=== PATIENT | male | born 1965 | race Caucasian/White ===

== ENCOUNTER 2016-09-15 13:48 | Emergency (ER) | payer OTHER ==
[2016-09-15 13:53] VITALS: BP 150/99; TEMP 99.1; BMI 31.5
--- NOTE | 2016-09-15 14:01 | ED.PDOC ---
General ED Provider: Dr. ELISABET HESS JR Chief Complaint: Finger Laceration Stated Complaint: closed with superglue -cut his left thumb on metal. tenderpainful moving thumb. redness noted.[ End ]99.1 80 16 94% 150/99 12/21 patient states wound was open and bleeding and he squirted a lot of superglue into laceration initially not painful now tender painful slightly swollen. disc with poison control- local wound care is non toxic hardens immediately per [place] Time Seen by Physician: 14:00 Mode of Arrival: Walk-In Information Source: Patient Exam Limitations: No limitations Nursing and Triage Documentation Reviewed and Agree: No Review of Systems - Review Of Systems Constitutional: Reports: No symptoms Eyes: Reports: No symptoms Ears, Nose, Mouth, Throat: Reports: No symptoms Respiratory: Reports: No symptoms Cardiac: Reports: No symptoms GI: Reports: No symptoms : Reports: No symptoms Musculoskeletal: Reports: Other Skin: Reports: Lesions (LEFT THUMB WITH 3 CM TENDER LESION CONSISTENT WITH 3 DAY LACERATION NO OOZINGTENDER ALONG EDGES NO PALABLE FOREIGN BODY DRY MODERATELY TENDER) Neurological: Reports: No symptoms (NEUROVASCULAR INTACT) Endocrine: Reports: No symptoms Hematologic/Lymphatic: Reports: No symptoms All Other Systems: Other Past Medical History - Past Medical History Previously Healthy: Yes Endocrine: Reports: DM 2, Dyslipidemia Cardiovascular: Reports: CAD, [place] (MT X3 STINT X2 ), Hypertension Respiratory: Reports: COPD Hematological: Reports: None Gastrointestinal: Reports: GERD Genitourinary: Reports: None Neuro/Psych: Reports: None Musculoskeletal: Reports: Arthritis, Back Pain, Joint Pain Cancer: Reports: None Other Pertinent Past Medical History: PVD - Surgical History General Surgical History: Reports: Appendectomy, Stent (x2), Orthopedic ( spinalfusion), Back Surgery - Family History Family History: Reports: None - Social History Smoking Status: Current every day smoker, Heavy tobacco smoker Hx Substance Use: Yes ("smoke a little weed every now and then.") Alcohol Screening: None - Immunizations Tetanus Shot up to Date: Yes (2 year ago) Physical Exam - Physical Exam Appearance: Ill-appearing Pain Distress: Moderate Neck: Supple Respiratory: Airway patent Skin: Warm, Dry (NOTE LESION) Neurological: Sensation intact, Motor intact, Reflexes intact, Cranial nerves intact, Alert, Oriented Critical Care Note - Critical Care Note Total Time (mins): 0 Course - Course Orders, Labs, Meds: Orders Category Date Time Status Ketorolac Tromethamine [Toradol] MEDS 09/15/16 14:13 Discontinued 60 mg IM ONCE STA THUMB, LEFT Stat RADS 09/15/16 14:12 Completed Medications Discontinued Medications Generic Name Dose Route Start Last Admin Trade Name Freq PRN Reason Stop Dose Admin Ketorolac Tromethamine 60 mg 09/15/16 14:13 09/15/16 14:24 Toradol IM 09/15/16 14:14 60 mg ONCE STA Administration Vital Signs: Temp Pulse Resp BP Pulse Ox 09/15/16 13:50 99.1 F 80 16 150/99 H 94 L Departure - Departure Time of Disposition: 15:02 Disposition: HOME SELF-CARE Discharge Problem: Laceration of finger, Foreign object left in body during injection or vaccination Instructions: Cellulitis (ED), Soft Tissue Foreign Body (ED), Laceration Without Closure (ED) Condition: Good Pt referred to PMD for follow-up: Yes Additional Instructions: ANTIBIOTIC UNTIL GONE RECHECK PMD DISCUSS POSSIBLE REFERRAL FOR FOREIGN MATTER UNDER SKIN MAY USE TOPICAL OINTMENT ON LACERATION DAILY BANDAGE CYANOACRYLATE(SUPERGLUE) MAY CONE TO SURFACE DURING OR AFTER HEALING Prescriptions: Naproxen [Naprosyn] 500 mg PO Q12HR PRN #30 tablet PRN Reason: PAIN Cephalexin [Keflex] 500 mg PO QID #20 capsule Allergies/Adverse Reactions: Allergies cyclobenzaprine HCl [From Flexeril] Adverse Reaction (Verified 09/15/16 13:52) diphenhydramine HCl [From Benadryl] Adverse Reaction (Verified 09/15/16 13:52) morphine Adverse Reaction (Verified 09/15/16 13:52) promethazine HCl [From Phenergan] Adverse Reaction (Verified 09/15/16 13:52) Home Medications: Ambulatory Orders Ticagrelor [Brilinta] 90 mg PO BID 08/18/13 Carvedilol [Coreg] 3.125 mg PO BID 10/16/14 Albuterol Sulfate [Albuterol Sulfate Hfa] 2 puff IH QID 04/10/15 Hydrocodone/Acetaminophen [[place] 7.5-325 Tablet] 1 each PO Q4HR PRN 04/10/15 Aspirin [Aspirin Chewable] 81 mg PO DAILYWM 05/31/15 Atorvastatin Calcium [Lipitor] 20 mg PO DAILY 05/31/15 Losartan Potassium [Cozaar] 100 mg PO DAILY 04/01/16 Naproxen [Naprosyn] 500 mg PO Q12HR PRN #30 tablet 04/01/16 Cephalexin [Keflex] 500 mg PO QID #20 capsule 09/15/16 Clonazepam 1 mg PO TID 09/15/16 Naproxen [Naprosyn] 500 mg PO Q12HR PRN #30 tablet 09/15/16
[2016-09-15] MEDS ORDERED: TORADOL IM STA (14:13)
--- NOTE | 2016-09-15 14:44 | DI ---
EXAM: Three views of the left thumb. History: Left thumb trauma. Findings: No acute fracture or dislocation. There are two metallic round radiopaque structures lillian t could be external to the patient projecting over the thumb. Joint spaces are preserved. Impression: No acute fracture.
== END 2016-09-15 15:18 | disposition home or self-care (01) ==
LOC: ED 13:48
DX: S61.022A Laceration with foreign body of left thumb without damage to nail, initial encounter (principal); W26.8XXA Contact with other sharp object(s), not elsewhere classified, initial encounter; F17.210 Nicotine dependence, cigarettes, uncomplicated
CPT/HCPCS: 96372; 99282

== ENCOUNTER 2016-11-10 14:50 | Emergency (ER) | payer OTHER ==
[2016-11-10 14:55] VITALS: BP 135/88; TEMP 97.8; BMI 30.8
--- NOTE | 2016-11-10 15:16 | ED.PDOC ---
General ED Provider: Dr. ERWIN UGPTA Chief Complaint: Chest Pain Stated Complaint: CHEST PAIN Time Seen by Physician: 15:00 (1 DAY AGO HAS HX OF CAD AND STENTS ) Mode of Arrival: Walk-In Information Source: Patient Exam Limitations: No limitations Primary Care Provider: FILEMON VICENTE Nursing and Triage Documentation Reviewed and Agree: Yes Cardiovascular Complaint Exam - Chest Pain Complaint/Exam Onset: Gradual Symptoms Are: Still present Initial Severity: Moderate Current Severity: Moderate Location: Reports: Midsternal Pain Radiates: Reports: None Character: Reports: Dull Aggravating: Reports: None Alleviating: Reports: None Associated Signs and Symptoms: Denies: Diaphoresis, Nausea, Vomiting, Fever, Palpitations, Cough, Hemoptysis, Back pain, Abdominal pain, Dizziness, Short of air, Calf pain, Calf swelling Related History: Reports: Similar episode Related Surgical History: Reports: PTCA/Stent (REMOTE HISTORY) History of Healthcare-Acquired Pneumonia: Reports: No TAD Risk Factors: Reports: Hypertension Pulmonary Embolism Risk Factors: Reports: None Prior Care for this Complaint: Yes (CAD/[place]) Recent Stress Test: No Recent Echo/LV Function: No JVD Present: No Subcutaneous Emphysema Present: No Diminshed Breath Sounds: No Reproducible Chest Wall Pain: No Bilateral Pulses Present: No Unequal Pulses Noted: No If Risk Factors for AMI/ACS Consider: EKG, Cardiac Enzymes Differential Diagnoses: Acute [place], Unstable Angina, CHF, Lower Resp. Infection Quality Indicators For Acute [place] or Cardiac Chest Pain: EKG in 10min. Quality Indicator For Non-Traumatic Chest Pain/Syncope: EKG Performed Review of Systems - Review Of Systems Constitutional: Reports: No symptoms Eyes: Reports: No symptoms Ears, Nose, Mouth, Throat: Reports: No symptoms Respiratory: Reports: No symptoms Cardiac: Reports: Chest pain GI: Reports: No symptoms : Reports: No symptoms Musculoskeletal: Reports: No symptoms Skin: Reports: No symptoms Neurological: Reports: No symptoms Endocrine: Reports: No symptoms Hematologic/Lymphatic: Reports: No symptoms All Other Systems: Reviewed and Negative Past Medical History - Past Medical History Previously Healthy: Yes Endocrine: Reports: DM 2, Dyslipidemia Cardiovascular: Reports: CAD, [place] ([place] X3 STINT X2 ), Hypertension Respiratory: Reports: COPD Hematological: Reports: None Gastrointestinal: Reports: GERD Genitourinary: Reports: None Neuro/Psych: Reports: None Musculoskeletal: Reports: Arthritis, Back Pain, Joint Pain Cancer: Reports: None Other Pertinent Past Medical History: PVD - Surgical History General Surgical History: Reports: Appendectomy, Stent (x2), Orthopedic ( spinalfusion), Back Surgery - Family History Family History: Reports: None - Social History Smoking Status: Current every day smoker, Heavy tobacco smoker Hx Substance Use: Yes ("smoke a little weed every now and then.") Alcohol Screening: None Physical Exam - Physical Exam Appearance: Well-appearing, No pain distress, Well-nourished Eyes: PETER, EOMI, Conjunctiva clear ENT: Ears normal, Nose normal, Oropharynx normal Respiratory: Airway patent, Breath sounds clear, Breath sounds equal, Respirations nonlabored Cardiovascular: RRR, Pulses normal, No rub, No murmur GI/: Soft, Nontender, No masses, Bowel sounds normal, No Organomegaly Musculoskeletal: Normal strength, ROM intact, No edema, No calf tenderness Skin: Warm, Dry, Normal color Neurological: Sensation intact, Motor intact, Reflexes intact, Cranial nerves intact, Alert, Oriented Psychiatric: Affect appropriate, Mood appropriate Interpretation - Service Vehicle Operator Rate: Normal Rhythm: Sinus Ectopy: None - EKG Interpretation Rate: Normal Rhythm: Sinus Ectopy: None [place]: [place] ST Segment: Normal Physician Notification - Case Discussed Physician Notified: rickey FARMER Time of Notification: 16:57 (TRANSFER NOW ) Critical Care Note - Critical Care Note Total Time (mins): 0 Course - Course Hematology/Chemistry: 11/10/16 15:12 11/10/16 15:12 Orders, Labs, Meds: Lab Review 11/10/16 15:12 WBC 8.13 RBC 5.26 Hgb 15.5 Hct 43.5 MCV 82.7 MCH 29.5 MCHC 35.6 H RDW Coeff of Koby 13.4 Plt Count 195 Immature Gran % (Auto) 0.4 Neut % (Auto) 58.5 Lymph % (Auto) 32.2 Scott % (Auto) 6.2 Eos % (Auto) 2.1 Baso % (Auto) 0.6 Immature Gran # (Auto) 0.0 Neut # 4.8 Lymph # 2.6 Scott # 0.5 Eos # 0.2 Baso # 0.1 Sodium 144 Potassium 2.9 L Chloride 102 Carbon Dioxide 29 Anion Gap 15.9 BUN 17 Creatinine 0.99 Estimated GFR (MDRD) 79.00 BUN/Creatinine Ratio 17.17 Glucose 103 H Calcium 10.9 H Total Bilirubin 0.45 AST 13 L ALT 15 Alkaline Phosphatase 64 Total Creatine Kinase 119 CK-MB (CK-2) 2.3 CK-MB (CK-2) % 1.48526 Troponin I < 0.0100 Total Protein 7.5 Albumin 4.0 Globulin 3.5 Albumin/Globulin Ratio 1.14 Orders Category Date Time Status EKG-(ED ONLY) Stat CARDIO 11/10/16 15:08 Completed CBC W/ AUTO DIFF Stat LAB 11/10/16 15:12 Completed COMPREHENSIVE METABOLIC PANEL Stat LAB 11/10/16 15:12 Completed CREATINE KINASE Stat LAB 11/10/16 15:12 Completed TROPONIN I Stat LAB 11/10/16 15:12 Completed Aspirin [Aspirin Chewable] MEDS 11/10/16 15:20 Discontinued 324 mg PO ONCE STA Nitroglycerin [Nitrostat] MEDS 11/10/16 15:23 Discontinued 0.4 mg SL ONCE STA Potassium Chloride [Potassium Chloride Premix Run] 10 MEDS 11/10/16 16:30 Active meq Premix 100 ml Water 1 bag IV ONCE Potassium Chloride [Potassium Chloride Premix Run] 100 MEDS 11/10/16 16:48 Discontinued ml IV .STK-MED CHEST, 2 VIEWS PA & LAT Stat RADS 11/10/16 15:07 Completed Medications Generic Name Dose Route Start Last Admin Trade Name Freq PRN Reason Stop Dose Admin Potassium Chloride 10 meq/ 100 mls @ 100 mls/hr 11/10/16 16:30 Sterile Water IV 11/10/16 17:29 ONCE STA Discontinued Medications Generic Name Dose Route Start Last Admin Trade Name Freq PRN Reason Stop Dose Admin Aspirin 324 mg 11/10/16 15:20 11/10/16 15:28 Aspirin Chewable PO 11/10/16 15:21 324 mg ONCE STA Administration Nitroglycerin 0.4 mg 11/10/16 15:23 11/10/16 15:29 Nitrostat SL 11/10/16 15:24 0.4 mg ONCE STA Administration Vital Signs: Temp Pulse Resp BP Pulse Ox 11/10/16 14:51 97.8 F 90 16 135/88 98 RACHAEL Risk Score RACHAEL Risk Score: Risk Score Odds of by 30D 0 0.1 (0.1-0.2) 1 0.3 (0.2-0.3) 2 0.4 (0.3-0.5) 3 0.7 (0.6-0.9) 4 1.2 (1.0-1.5) 5 2.2 (1.9-2.6) 6 3.0 (2.5-3.6) 7 4.8 (3.8-6.1) Departure - Departure Time of Disposition: 18:00 Disposition: TSF SHORT-TRM HOSP Discharge Problem: Chest pain, Hypokalemia Instructions: Chest Pain (ED) Condition: Good Pt referred to PMD for follow-up: Yes Additional Instructions: Please call your Family Physician as soon as possible to schedule a follow-up appointment. Allergies/Adverse Reactions: Allergies cyclobenzaprine HCl [From Flexeril] Adverse Reaction (Verified 11/10/16 14:54) diphenhydramine HCl [From Benadryl] Adverse Reaction (Verified 11/10/16 14:54) morphine Adverse Reaction (Verified 11/10/16 14:54) promethazine HCl [From Phenergan] Adverse Reaction (Verified 11/10/16 14:54) Home Medications: Ambulatory Orders Ticagrelor [Brilinta] 90 mg PO BID 08/18/13 Carvedilol [Coreg] 3.125 mg PO BID 10/16/14 Albuterol Sulfate [Albuterol Sulfate Hfa] 2 puff IH QID 04/10/15 Hydrocodone/Acetaminophen [[place] 7.5-325 Tablet] 1 each PO Q4HR PRN 04/10/15 Aspirin [Aspirin Chewable] 81 mg PO DAILYWM 05/31/15 Atorvastatin Calcium [Lipitor] 20 mg PO DAILY 05/31/15 Losartan Potassium [Cozaar] 100 mg PO DAILY 04/01/16 Clonazepam 1 mg PO TID 09/15/16 Naproxen [Naprosyn] 500 mg PO Q12HR PRN #30 tablet 09/15/16 Disposition Discussed With: Patient, Family
[2016-11-10 15:17] LABS: BASOPHILS # (AUTO) 0.1 K/uL (0-0.2); BASOPHILS % (AUTO) 0.6 % (0.0-3.0); EOSINOPHILS # (AUTO) 0.2 K/ul (0.0-0.7); EOSINOPHILS % (AUTO) 2.1 % (0.0-7.0); HEMATOCRIT 43.5 % (42.0-52.0); HEMOGLOBIN 15.5 g/dl (14.0-18.0); IMMATURE GRANULOCYTE % (AUTO) 0.4 % (0.0-5.0); LYMPHOCYTES # (AUTO) 2.6 K/uL (0.60-3.4); LYMPHOCYTES % (AUTO) 32.2 (10.0-50.0); MEAN CORPUSCULAR HEMOGLOBIN 29.5 pg (27.0-31.0); MEAN CORPUSCULAR HGB CONC 35.6 (31.8-35.4); MEAN CORPUSCULAR VOLUME 82.7 fl (80.0-94.0); MONOCYTES # (AUTO) 0.5 K/uL (0.4-2.0); MONOCYTES % (AUTO) 6.2 (0-10); NEUTROPHILS # (AUTO) 4.8 K/ul (2.0-6.9); NEUTROPHILS % (AUTO) 58.5; PLATELET COUNT 195 10^3/uL (140-440); RED BLOOD COUNT 5.26 10^6/ul (4.70-6.10); WHITE BLOOD COUNT 8.13 K/ul (4.2-10.2)
[2016-11-10] MEDS ORDERED: ASPIRIN CHEWABLE PO STA (15:20)
[2016-11-10] MEDS ORDERED: NITROSTAT SL STA (15:23)
--- NOTE | 2016-11-10 15:34 | DI ---
EXAM: Two-view chest. HISTORY: Pain. DATE: 11/10/2016. COMPARISON: CT of the chest obtained on 07/15/2015. TECHNIQUE: PA and lateral views of the chest. FINDINGS: No focal consolidation, pleural effusion, or pneumothorax is identified. The heart size is normal. There are mild degenerative changes of the thoracic spine. IMPRESSION: No acute cardiopulmonary findings.
[2016-11-10 15:53] LABS: ALANINE AMINOTRANSFERASE 15 U/L (12-78); ALBUMIN/GLOBULIN RATIO 1.14; ALKALINE PHOSPHATASE 64 U/L (50-136); ANION GAP 15.9; ASPARTATE AMINO TRANSFERASE 13 U/L (15-37); BILIRUBIN,TOTAL 0.45 mg/dL (0.00-1.20); BLOOD UREA NITROGEN 17 mg/dL (7-18); BUN/CREATININE RATIO 17.17; CALCIUM 10.9 mg/dL (8.2-10.2); CARBON DIOXIDE 29 mmol/L (21-32); CHLORIDE 102 mmol/L (98-107); CREATINE KINASE 119 U/L; CREATININE 0.99 mg/dL (0.60-1.10); GLUCOSE 103 mg/dL (70-100); POTASSIUM 2.9 mmol/L (3.5-5.1); SODIUM 144 mmol/L (136-145); TOTAL PROTEIN 7.5 g/dL (6.4-8.2)
[2016-11-10 15:54] LABS: CREATINE KINASE MB 2.3 ng/ml (0.0-3.6)
[2016-11-10] MEDS ORDERED: POTASSIUM CHLORIDE PREMIX RUN 10 MEQ in PREMIX 100 ML WATER 1 BAG IV STA (16:30)
[2016-11-10] MEDS ORDERED: POTASSIUM CHLORIDE PREMIX RUN 100 ML IV ONE (16:48)
[2016-11-10] MEDS ORDERED: ZOFRAN 4 MG/2 ML IVP STA ×2 (17:05→18:06)
[2016-11-10] MEDS ORDERED: MORPHINE 4 MG/ML SYRINGE IVP STA (17:05)
[2016-11-10] MEDS ORDERED: K-DUR PO STA (18:03)
[2016-11-10] MEDS ORDERED: DEMEROL 50 MG/ML SYRINGE IVP STA (18:06)
== END 2016-11-10 19:30 | disposition short-term general hospital (02) ==
LOC: ED 14:50
DX: R07.9 Chest pain, unspecified (principal); E87.6 Hypokalemia; I25.10 Atherosclerotic heart disease of native coronary artery without angina pectoris; E11.9 Type 2 diabetes mellitus without complications; E78.5 Hyperlipidemia, unspecified; I10 Essential (primary) hypertension; I25.2 Old myocardial infarction; Z95.5 Presence of coronary angioplasty implant and graft; F17.210 Nicotine dependence, cigarettes, uncomplicated; Z79.899 Other long term (current) drug therapy
CPT/HCPCS: 36415; 80053; 82550; 82553; 84484; 85025; 93005; 93010; 96365; 96375; 99285

== ENCOUNTER 2017-05-14 08:01 | Outpatient (CLI) | END 2017-05-14 08:02 | disposition home or self-care (01) | LOC: LAB 08:01 | PROVIDERS: ATTEND Nurse Practitioner Family | DX: E87.6 Hypokalemia (principal) | CPT/HCPCS: 36415; 84132 ==